=== PATIENT | male | born 1955 | race Caucasian/White ===

== ENCOUNTER 2021-05-08 12:55 | Outpatient (CLI) | payer MEDICARE, SELFPAY ==
--- NOTE | 2021-05-08 13:08 | XR_ITS ---
WS: [id number] LATERAL LUMBAR SPINE: 3 view. Lateral radiographs are performed in upright neutral, flexion and extension to the patient's toleranc e. HISTORY: POSTLAMINECTOMY SYNDROME COMPARISON: None available. Straightening of the normal lumbar lordosis. Large anterior bridging clawlike osteophytes extending o yvette the mid to lower lumbar spine anteriorly. Very little movement during flexion and extension. No i nstability. Moderate degenerative disc disease. 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 Scattered calcifications within the aorta. XR/XR lumbar spine f/e only [id number] IMPRESSION: 1. No lumbar spine instability. 2. Marked straightening of the normal lumbar lordosis with very little movemen t during attempted flexion and extension. 3. Large bridging osteophytes and facet joint arthritis.
--- NOTE | 2021-05-08 13:09 | MR_ITS ---
WS: [id number] MRI LUMBAR SPINE WITH AND WITHOUT CONTRAST. HISTORY: POSTLAMINECTOMY SYNDROME COMPARISON: None available. TECHNIQUE: Sagittal and axial multisequence imaging is submitted. Sagittal and axial T1 fat sat seque nces post-MultiHance 17 cc IV. RIGHT curvature thoracic spine. Mild LEFT curvature lumbar spine. There is marked straightening of th e normal lumbar lordosis. No fractures or marrow edema. Focal disc protrusion RIGHT paracentral at th e T11-12 level. Disc spaces throughout the lumbar spine are moderately narrowed. Small osteophytes and bridging osteo phytes anteriorly. Conus terminates normally at L1-2 disc level. L1-L2: Moderate bilateral facet and ligamentum flavum hypertrophy. Mild annular disc bulging. Very mi ld bilateral foraminal narrowing and central stenosis. L2-L3: Moderate bilateral ligamentum flavum and facet joint arthritis and annular disc bulging. Encro achment into the thecal sac and subarticular recesses. RIGHT foraminal disc protrusion resulting in m ild RIGHT subarticular recess and foraminal narrowing. There is very slight disc contact upon the tra versing L3 nerve root on the RIGHT. Mild central stenosis. L3-L4: Diffuse annular disc bulging and osteophytic ridging with mild ligamentum flavum disease and f acet arthritis. Disc encroachment upon the traversing nerve roots bilaterally. Mild central and bilat eral subarticular recess narrowing. L4-L5: Diffuse annular disc bulging and marked osteophytic ridging. Central disc osteophyte complex e ncroaching upon the ventral thecal sac. Very slight encroachment upon the traversing L5 nerve root. N erve roots are clumped within the thecal sac and there is a large RIGHT hemilaminectomy defect. Very mild bilateral foraminal narrowing with small osteophytes encroaching upon the exiting L4 nerve roots . L5-S1: Laminectomy defect on the RIGHT. Clumping of the nerve roots in the thecal sac. No stenosis. There is no discitis or osteomyelitis. No epidural abscess. MR/MR lumbar spine wo/w con [id number] IMPRESSION: 1. Large laminectomy defects on the RIGHT at the L4-S1 level. 2. 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 3. Mild foraminal central stenosis at L1-2. 4. RIGHT disc protrusion at L2-3 resulting in mild RIGHT subarticular recess a nd foraminal narrowing with mild contact upon the traversing L3 nerve root. Mil d central stenosis at L2-3. 5. Mild central and bilateral subarticular recess stenosis at L3-4. Very mild encroachment upon the traversing nerve roots. 6. Central disc osteophyte complex encroaching and abutting the ventral thecal sac. Minimal contact on the traversing RIGHT L5 nerve root. 7. RIGHT paracentral disc protrusion at T11-12 with encroachment but no displa cement on the thoracic cord. 8. Thoracolumbar scoliosis with severe straightening of the normal lumbar lord osis and osteophytic bridging anteriorly.
== END 2021-05-08 12:56 | disposition home or self-care (01) ==
PROVIDERS: Visit Provider Anesthesiology Pain Medicine
DX: M96.1 Postlaminectomy syndrome, not elsewhere classified (principal); G03.9 Meningitis, unspecified; M48.061 Spinal stenosis, lumbar region without neurogenic claudication; M51.26 Other intervertebral disc displacement, lumbar region; M25.78 Osteophyte, vertebrae; M51.24 Other intervertebral disc displacement, thoracic region; M41.85 Other forms of scoliosis, thoracolumbar region
CPT/HCPCS: 72120; 72158; A9579